=== PATIENT | female | born 1985 | race Caucasian/White ===

== ENCOUNTER → 2017-09-08 | Day surgery (SDC) | payer OTHER ==
[~2017-09-08] VITALS: Ht 170.2 cm; Wt 124.5 kg
[~2017-09-08] MED LIST: *morphine SULFATE 4 MG/ML PERIprocedure ONLY ONE; ACETAMINOPHEN 1000 MG/100 ML 0 ML IV ONE; ACETAMINOPHEN 1000 MG/100 ML 100 ML IV ONE; APREPITANT 40 MG CAP ONE; CHLORHEXIDINE GLUCONATE 2 % 1 PACK (2 CLOTHS) TOPICAL PRN; CLINDAMYCIN PHOS 600 MG/4 ML VIAL ONE; CLINDAMYCIN PHOS 900 MG/6 ML VIAL ONE; DEXAMETHASONE SOD PHOS 4 MG/ML VIAL IV ONE; DO NOT ADM ANY ANTICOAGULANT DRUGS PRN; ENOX40P SQ; ESTROGENS CONJUGATED VAG CREA 15 APPL/30 GM TUBE ONE; FAMOTIDINE 20 MG/2 ML VIAL ONE; GLYCOPYRROLATE 1 MG/5 ML SYRINGE IV PUSH ONE; HYDROCODONE PO; IBUPROFEN 600 MG TAB PO PRN; KETOROLAC TROMETHAMINE 30 MG/ML (IVP) VIAL IVP PRN; LACTATED RINGER'S 1000 ML INJ 1,000 ML IV SCH; LACTATED RINGER'S 1000 ML IV PRN; LIDOCAINE HCL 1% PF 5 ML SYRINGE OTHER ONE; METHYLERGONOVINE MALEATE 0.2 MG/ML VIAL ONE; METOPROLOL TARTRATE 25 MG TAB PO PRN; MIDAZOLAM HCL 2 MG/2 ML VIAL ONE; MORPHINE SULFATE 2 MG/ML INJ SQ PRN; NEOSTIGMINE 5 MG/5 ML SYRINGE IV PUSH ONE; ONDANSETRON HCL 4 MG/2 ML VIAL IV ONE; ONDANSETRON HCL 4 MG/2 ML VIAL IVP PRN; OXYTOCIN 10 UNIT/ML AMP ONE; POVIDONE IODINE 5% (ANTISEPSIS KIT) 4 APPLICATIONS EACH NARE PRN; PRENCAP10 PO; PROMETHAZINE INJ 25 MG/ML VIAL IM PRN; PROPOFOL 200 MG/20 ML AMP IV ONE; ROCURONIUM INJ 50 MG/5 ML SYRINGE IV PUSH ONE; SODIUM CHLORID 0.9% 500 ML IV PRN; SODIUM CHLORIDE 0.9% 20 ML VIAL IV ONE; SODIUM CHLORIDE 0.9% FLUSH 10 ML FLUSH IV FLUSH PRN; SODIUM CHLORIDE 0.9% FLUSH 10 ML FLUSH IV FLUSH SCH; SUCCINYLCHOLINE CHLORIDE 100 MG/5 ML SYRINGE IV PUSH ONE; ceFAZolin 2 GM PREMIX 50 ML IV SCH; ceFAZolin INJ 1,000 MG VIAL IV ONE; diphenhydrAMINE HCL 25 MG CAP PO PRN; oxyCODONE/ACETAMINOPHEN 5 MG/325 MG TAB PO PRN
[2017-09-08 10:34] LABS: AUTOMATED NEUTROPHIL # 4.8 TH/MM3 (1.8-7.7); BASOPHIL # 0.1 TH/MM3 (0-0.2); BASOPHIL % 0.8 % (0.0-2.0); EOSINOPHIL # 0.1 TH/MM3 (0-0.4); EOSINOPHIL % 1.5 % (0.0-4.0); HEMATOCRIT 34.1 % (35.0-46.0); HEMOGLOBIN 11.5 GM/DL (11.6-15.3); LYMPH % 25.6 % (9.0-44.0); LYMPHOCYTE # 1.9 TH/MM3 (1.0-4.8); MEAN CELL VOLUME 78.1 FL (80.0-100.0); MEAN CORPUSCULAR HEMOGLOBIN 26.4 PG (27.0-34.0); MEAN CORPUSCULAR HGB CONC 33.8 % (32.0-36.0); MEAN PLATELET VOLUME 7.5 FL (7.0-11.0); MONO % 5.8 % (0.0-8.0); MONOCYTE # 0.4 TH/MM3 (0-0.9); NEUT % 66.3 % (16.0-70.0); PLATELET COUNT 297 TH/MM3 (150-450); RED BLOOD COUNT 4.36 MIL/MM3 (4.00-5.30); RED CELL DISTRIBUTION WIDTH 15.2 % (11.6-17.2); WHITE BLOOD COUNT 7.2 TH/MM3 (4.0-11.0)
[2017-09-08 11:10] LABS: PROTHROMBIN TIME - PATIENT 10.3 SEC (9.8-11.6)
[2017-09-08 17:30] VITALS: BP 102/59; PULSE 58; RESP 18; TEMP 97.3; O2SAT 99
--- NOTE | 2017-09-09 09:31 | MP ---
cc: ANIRUDH DANG M.D. DATE OF SURGERY 09/08/2017 PATIENT HISTORY 8-week intrauterine gestation. demise. Missed . PROCEDURE Dilatation curettage with suction. POSTOPERATIVE DIAGNOSIS 8-week intrauterine gestation. demise. Missed . ANESTHESIA General with endotracheal intubation. ESTIMATED BLOOD LOSS 50 cc. DRAINS None. OPERATIVE FINDINGS The patient had anteverted uterus consistent with 8 weeks' sized gestation. No other significant abnormalities were evident. INDICATIONS FOR PROCEDURE The patient presented with acute bleeding with a known intrauterine viable . Ultrasound on September 07 confirmed a nonviable 8-week gestation, no cardiac activity. Due to the patient's use of Lovenox and concerns for thromboembolic issues, recommendation was to proceed with dilatation and curettage expeditiously. OPERATIVE PROCEDURE The patient received Ancef 2 grams prophylactically without complication. She underwent general anesthesia with endotracheal intubation. She was carefully positioned in dorsal lithotomy position using candy-cane stirrups. Sequentials were placed on the lower extremities for VTE prophylaxis. She was prepped and draped, time-out was conducted and agreed on by all present in the room. A simple bivalve retractor was used to examine the cervix which demonstrated active bleeding with some clots. The cervix was secured anteriorly with a single-tooth tenaculum and then a uterine sound was placed gently to about 8 cm in a slightly anteverted fashion. The cervix was then dilated to accommodate a #10 curved curette. The curette was used to evacuate the entire endometrial cavity and this was confirmed by using a hand-held sharp curette to confirm removal of all products of conception. No perforation occurred. The patient was stable at the completion of the case. Final count was correct. She went to the recovery room on room air. The patient's maternal blood type is A+, does not require RhoGAM. MD SHANEL Jacobsen/AG /3:50 PM /8:59 AM
== END | disposition home or self-care (01) ==
LOC: HSDC 09:01
PROVIDERS: ATTEND Obstetrics & Gynecology
DX: O02.1 Missed abortion (principal)
CPT/HCPCS: 01965; 59820; 85025; 85610; 86850; 86900; 86901; 88305; J0131; J0690; J1885; J2210; J2250; J2270; J2590; J3010; J7120; J8501; J0330; J1100; J2405; J2710